=== PATIENT | female | born 1965 | race Caucasian/White ===

== ENCOUNTER → 2016-10-21 | Outpatient (CLI) | payer OTHER ==
[~2016-10-21] MED LIST: ESTR1TAB PO; MAXA10TA2 PO; VENL75TA PO
[2016-10-21 10:41] LABS: MEAN CELL VOLUME 94.3 FL (80.0-100.0); MEAN CORPUSCULAR HEMOGLOBIN 32.5 PG (27.0-34.0); MEAN CORPUSCULAR HGB CONC 34.5 % (32.0-36.0); PLATELET COUNT 223 TH/MM3 (150-450); RED BLOOD COUNT 4.56 MIL/MM3 (4.00-5.30); RED CELL DISTRIBUTION WIDTH 12.2 % (11.6-17.2); REVIEW FLAG FINAL; WHITE BLOOD COUNT 3.9 TH/MM3 (4.0-11.0)
[2016-10-21 10:50] LABS: ALT (GPT) 25 U/L (10-53); ANION GAP 8 MEQ/L (5-15); AST (GOT) 24 U/L (15-37); BICARBONATE 27.5 MEQ/L (21.0-32.0); BLOOD UREA NITROGEN 13 MG/DL (7-18); CHLORIDE 103 MEQ/L (98-107); GLOMERULAR FILTRATION RATE 71 ML/MIN (>89); GLUCOSE,FASTING 80 MG/DL (74-99); POTASSIUM 4.1 MEQ/L (3.5-5.1); SODIUM (NA) 138 MEQ/L (136-145)
[2016-10-21 10:58] LABS: ALKALINE PHOSPHATASE 73 U/L (45-117); HDL CHOLESTEROL 51.5 MG/DL (40.0-60.0); LDL CHOLESTEROL 87 MG/DL (0-99); TOTAL BILIRUBIN ADULT 0.2 MG/DL (0.2-1.0)
[2016-10-21 12:02] LABS: WESTERGREN SEDIMENTATION RATE 1 mm/hr (0-20)
[2016-10-24 17:52] LABS: SCL-70 IGG AUTOAB <1.0 NEG AI (<1.0 NEGATIVE)
== END ==
LOC: CLAB 09:47
PROVIDERS: ATTEND Family Medicine
DX: M25.50 Pain in unspecified joint (principal); R63.5 Abnormal weight gain; G43.909 Migraine, unspecified, not intractable, without status migrainosus; F41.1 Generalized anxiety disorder; N95.1 Menopausal and female climacteric states
CPT/HCPCS: 36415; 80053; 80061; 83516; 84443; 85027; 85652; 86038; 86140; 86160; 86225; 86235

== ENCOUNTER 2016-12-28 22:43 | Emergency (ER) | payer OTHER ==
[~2016-12-28] VITALS: Ht 167.6 cm; Wt 60.0 kg
[2016-12-28 22:51] VITALS: BP 149/92; PULSE 76; RESP 22; TEMP 98.2; O2SAT 96
[2016-12-28] MEDS ORDERED: IBUPROFEN 600 MG TAB PO ONE (23:30)
--- NOTE | 2016-12-28 23:41 | PD ---
HPI Chief Complaint: Injury Time Seen by Provider: 22:45 Travel History International Travel<30 days: No Contact w/Intl Traveler<30days: No Traveled to known affect area: No History of Present Illness HPI 51-year-old female who presents to emergency room complaints of left foot pain after a tray dropped onto it last night. PFSH Past Medical History Arthritis: No Asthma: No Depression: Yes Heart Rhythm Problems: No Cancer: No Cardiovascular Problems: No High Cholesterol: No Chest Pain: No Congestive Heart Failure: No COPD: No Cerebrovascular Accident: No Diabetes: No Diminished Hearing: No Endocrine: No Gastrointestinal Disorders: Yes (BLOATING GAS) Genitourinary: No Headaches: No Hepatitis: No Hiatal Hernia: No Hypertension: No Immune Disorder: No Musculoskeletal: No Neurologic: Yes (Migraines) Psychiatric: No Respiratory: No Migraines: Yes Myocardial Infarction: No Seizures: No Sleep Apnea: No Thyroid Disease: No ?: Not : 3 Para: 2 Miscarriage: 1 : 0 Past Surgical History Abdominal Surgery: Yes (sky appy) AICD: No Appendectomy: Yes Cardiac Surgery: No Cholecystectomy: Yes Ear Surgery: No Endocrine Surgery: No Eye Surgery: No Genitourinary Surgery: Yes (bladder tuck) Gynecologic Surgery: No Hysterectomy: Yes Joint Replacement: No Neurologic Surgery: No Oral Surgery: No Pacemaker: No Thoracic Surgery: No Other Surgery: Yes Social History Alcohol Use: Yes (occ) Tobacco Use: No Substance Use: No Allergies-Medications (Allergen,Severity, Reaction): Coded Allergies: No Known Allergies (Verified Adverse Reaction, Unknown, 12/28/16) Reported Meds & Prescriptions Reported Meds & Active Scripts Active Reported Estradiol 1 Mg Tab 1 Mg PO DAILY Effexor (Venlafaxine HCl) 75 Mg Tab 150 Mg PO DAILY Maxalt (Rizatriptan Benzoate) 10 Mg Tab 10 Mg PO DIRECTED PRN Review of Systems General / Constitutional: No: Fever Eyes: No: Visual changes HENT: No: Headaches Cardiovascular: No: Chest Pain or Discomfort Respiratory: No: Shortness of Breath Gastrointestinal: No: Abdominal Pain Genitourinary: No: Dysuria Musculoskeletal: Positive: Limited ROM, Pain (left foot) Skin: No Rash Neurologic: No: Weakness Psychiatric: No: Depression Endocrine: No: Polydipsia Hematologic/Lymphatic: No: Easy Bruising Physical Exam Narrative GENERAL: Well-nourished, well-developed patient. SKIN: Focused skin assessment warm/dry. HEAD: Normocephalic. EYES: No scleral icterus. No injection or drainage. NECK: Supple, trachea midline. No JVD or lymphadenopathy. CARDIOVASCULAR: Regular rate and rhythm without murmurs, gallops, or rubs. RESPIRATORY: Breath sounds equal bilaterally. No accessory muscle use. GASTROINTESTINAL: Abdomen soft, non-tender, nondistended. MUSCULOSKELETAL: No cyanosis. lle: pulses intact, neurovascularly intact, patient with bruising to her foot, right lower extremity: normal exam BACK: Nontender without obvious deformity. No CVA tenderness. Data Data Last Documented VS Vital Signs Date Time Temp Pulse Resp B/P (MAP) Pulse Ox O2 Delivery O2 Flow Rate FiO2 12/28/16 22:51 98.2 76 22 149/92 (111) 96 Orders Orders Foot, Complete ([id number]) (12/28/16 ) Ibuprofen (Motrin) (12/28/16 23:30) MDM Medical Decision Making Medical Screen Exam Complete: Yes Emergency Medical Condition: Yes Medical Record Reviewed: Yes Interpretation(s) Vital Signs Date Time Temp Pulse Resp B/P (MAP) Pulse Ox O2 Delivery O2 Flow Rate FiO2 12/28/16 22:51 98.2 76 22 149/92 (111) 96 Differential Diagnosis foot fx vs sprain Narrative Course During the course of the patients emergency department visit, the patients history, examination, and differential diagnosis were reviewed with the patient. The patient was placed on a second rigger with oximetry and frequent blood pressure monitoring. Radiology studies were reviewed and remarkable for: Last Impressions Foot X-Ray 12/28/16 0000 Signed Impressions: Service Date/Time: Wednesday, December 28, 2016 21:44 - CONCLUSION: Intact left foot. Jason Sinclair MD Patient will follow up with pcp and will return to ER as needed Diagnosis Primary Impression: Foot sprain Patient Instructions: General Instructions Disposition: 01 DISCHARGE HOME Condition: Stable PerezKaro Dec 28, 2016 23:41
--- NOTE | 2016-12-28 23:59 | RADRPT ---
EXAM DATE/TIME: 12/28/2016 21:44 [facility] COMPARISON: No previous studies available for comparison. INDICATIONS : Left foot pain, tray dropped on top of foot. MEDICAL HISTORY : None. SURGICAL HISTORY : None. ENCOUNTER: Initial ACUITY: 1 day PAIN SCORE: 7/10 LOCATION: Left lateral foot FINDINGS: Three view examination of the left foot demonstrates no soft tissue swelling, dislocation, or fractur e. The tarsal bones appear intact. The interphalangeal and metatarsophalangeal joints are intact. The calcaneus is intact. Bony mineralization is normal. CONCLUSION: Intact left foot. Jason Sinclair MD on December 28, 2016 at 23:57 Board Certified Radiologist. This report was verified electronically.
== END 2016-12-29 00:41 | disposition home or self-care (01) ==
LOC: NEPE 22:43
DX: S93.602A Unspecified sprain of left foot, initial encounter (principal); W20.8XXA Other cause of strike by thrown, projected or falling object, initial encounter
CPT/HCPCS: 73630; 99283